=== PATIENT | female | born 2005 | race Caucasian/White ===

== ENCOUNTER 2025-05-31 08:58 | Emergency (ER) | payer OTHER ==
[2025-05-31] MEDS: Diphtheria,Pertussis(Acell),Tetanus Vaccine 0.5 ML Syringe IM ONE (12:07)
== END 2025-05-31 12:18 | disposition home or self-care (01) ==
LOC: JP.ED 08:58
DX: S91.311A Laceration without foreign body, right foot, initial encounter (principal); Z23 Encounter for immunization; W26.8XXA Contact with other sharp object(s), not elsewhere classified, initial encounter
CPT/HCPCS: 12002; 90471; 90715; 99282-25